=== PATIENT | female | born 1970 | race Caucasian/White ===

== ENCOUNTER → 2016-10-30 | Outpatient (CLI) | payer MEDICAID ==
[~2016-10-30] MED LIST: /ESOM40CA OR; FISH300C2 OR; GLUC1000 OR; SIMV20TA2 OR; SING10TA31 OR; [UNRECOGNIZED DRUG - OTHER] OR
== END ==
LOC: M WUC 14:53
PROVIDERS: ATTEND Nurse Practitioner Family
DX: E11.9 Type 2 diabetes mellitus without complications (principal); E55.9 Vitamin D deficiency, unspecified

== ENCOUNTER → 2016-11-22 | Outpatient (CLI) | payer MEDICAID | LOC: M CARPUL 13:20 | PROVIDERS: ATTEND Nurse Practitioner Family | DX: J44.9 Chronic obstructive pulmonary disease, unspecified (principal); R05 Cough ==

== ENCOUNTER → 2016-12-14 | Outpatient (CLI) | payer MEDICAID ==
--- NOTE | 2016-12-14 16:57 | REP ---
RIGHT SHOULDER SERIES: There is no evidence of an acute fracture, dislocation or intrinsic bone disease. The joint spaces appear unremarkable. IMPRESSION: No fracture or dislocation. Signed by Rene Mccormick MD 12/15/2016 01:23 P
[2016-12-14 18:31] LABS: MEAN CORPUSCULAR HGB CONC 35.1 g/dl (32.0-36.5); MEAN CORPUSCULAR VOLUME 88.1 fl (80.0-96.0); RED CELL DISTRIBUTION WIDTH 11.6 % (11.5-14.5); WHITE BLOOD COUNT 7.8 K/mm3 (4.0-10.0)
== END ==
LOC: M WUC 15:54
PROVIDERS: ATTEND Nurse Practitioner Family
DX: M25.511 Pain in right shoulder (principal); M54.6 Pain in thoracic spine

== ENCOUNTER → 2016-12-15 | Outpatient (CLI) | payer MEDICAID ==
--- NOTE | 2016-12-15 16:20 | REP ---
Clinical: Chest and back pain . Comparison: 08/10/2016 . Technique: PA and lateral. Findings: The mediastinum and cardiac silhouette are normal. The lung dunlap are clear and without acute consolidation, effusion, or pneumothorax. The skeletal structures are intact and normal. Impression: 1. No acute cardiopulmonary process. Signed by Naman Gray MD 12/15/2016 04:11 P
== END ==
LOC: M WUC 16:00
PROVIDERS: ATTEND Nurse Practitioner Family
DX: M54.6 Pain in thoracic spine (principal)

== ENCOUNTER → 2017-01-17 | Outpatient (CLI) | payer MEDICAID ==
[~2017-01-17] MED LIST changes: +BREO1INH INH; +DICL50TAB PO; +E-Z-PAQUE 96% w/w SUSP 176GM BTL As Ordered ONE; +JANU50TA8 PO; +NEUR100C PO; +TIZA4CAP3 PO; +VARIBAR NECTAR 40% w/v 240ML SUSP BTL As Ordered ONE; +VARIBAR PUDDING 40% w/v 230ML TUBE As Ordered ONE; +[UNRECOGNIZED DRUG - CODE] XX
--- NOTE | 2017-01-17 09:42 | REP ---
COOKIE SWALLOW: The procedure was performed under the direct supervision of Dr. Mccormick. The procedure was performed with Bekah Wright from speech pathology present. 5 mL aliquots of nectar, pudding, solid, and thin consistency barium was administered. There is no evidence of penetration or aspiration. A detailed report of this examination will be provided by speech pathology. 27 seconds of fluoroscopy time was utilized for this procedure. Reviewed by GADIEL Butler 01/17/2017 10:58 AEdited and Signed by Rene Mccormick MD 01/18/2017 04:59 P
== END ==
LOC: M ST 08:08
PROVIDERS: ATTEND Nurse Practitioner Family
DX: R13.10 Dysphagia, unspecified (principal)

== ENCOUNTER → 2017-04-30 | Outpatient (CLI) | payer MEDICAID ==
[~2017-04-30] MED LIST changes: -E-Z-PAQUE 96% w/w SUSP 176GM BTL As Ordered ONE; -VARIBAR NECTAR 40% w/v 240ML SUSP BTL As Ordered ONE; -VARIBAR PUDDING 40% w/v 230ML TUBE As Ordered ONE
[2017-04-30 09:40] LABS: ALKALINE PHOSPHATASE 70 U/L (45-117); BILIRUBIN,TOTAL 0.3 MG/DL (0.2-1.0); BLOOD UREA NITROGEN 15 MG/DL (7-18); CALCIUM LEVEL 8.1 MG/DL (8.5-10.1); CHLORIDE LEVEL 106 MEQ/L (98-107); CREATININE FOR GFR 0.72 MG/DL (0.55-1.02); GLUCOSE, FASTING 201 MG/DL (70-105); POTASSIUM SERUM 4.7 MEQ/L (3.5-5.1); SODIUM LEVEL 140 MEQ/L (136-145); TOTAL PROTEIN 6.7 GM/DL (6.4-8.2)
[2017-04-30 10:16] LABS: ALT/SGPT 21 U/L (12-78); AST/SGOT 10 U/L (15-37)
[2017-04-30 11:42] LABS: ALBUMIN 3.6 GM/DL (3.2-5.2); ALBUMIN/GLOBULIN RATIO 1.16 (1.00-1.93); ANION GAP 10 MEQ/L (8-16); CARBON DIOXIDE LEVEL 24 MEQ/L (21-32)
== END ==
LOC: M WUC 08:19
PROVIDERS: ATTEND Nurse Practitioner Family
DX: E11.9 Type 2 diabetes mellitus without complications (principal); E55.9 Vitamin D deficiency, unspecified

== ENCOUNTER → 2017-08-29 | Outpatient (CLI) | payer OTHER ==
[2017-08-29 09:44] LABS: ALKALINE PHOSPHATASE 69 U/L (45-117); ALT/SGPT 18 U/L (12-78); ANION GAP 7 MEQ/L (8-16); AST/SGOT 8 U/L (7-37); BILIRUBIN,TOTAL 0.4 MG/DL (0.2-1.0); BLOOD UREA NITROGEN 10 MG/DL (7-18); CALCIUM LEVEL 9.1 MG/DL (8.5-10.1); CARBON DIOXIDE LEVEL 27 MEQ/L (21-32); CHLORIDE LEVEL 108 MEQ/L (98-107); CHOLESTEROL LEVEL 185 MG/DL (<200); CREATININE FOR GFR 0.77 MG/DL (0.55-1.02); GLOMERULAR FILTRATION RATE > 60.0 (>58); GLUCOSE, FASTING 157 MG/DL (70-105); POTASSIUM SERUM 4.6 MEQ/L (3.5-5.1); SODIUM LEVEL 142 MEQ/L (136-145); TRIGLYCERIDES LEVEL 283 MG/DL (<150)
[2017-08-29 09:45] LABS: ALBUMIN 3.8 GM/DL (3.2-5.2); ALBUMIN/GLOBULIN RATIO 1.23 (1.00-1.93); TOTAL PROTEIN 6.9 GM/DL (6.4-8.2)
== END ==
LOC: M WUC 08:17
PROVIDERS: ATTEND Nurse Practitioner Adult Health
DX: E11.9 Type 2 diabetes mellitus without complications (principal)

== ENCOUNTER → 2018-10-10 | Outpatient (REF) | payer OTHER, MEDICAID ==
[~2018-10-10] MED LIST changes: +TIZA4CAP PO; -TIZA4CAP3 PO
[2018-10-10 18:07] LABS: BASO # 0.1 10^3/uL (0.0-0.2); BASO % 0.7 % (0.0-1.0); EOS # 0.1 10^3/uL (0.0-0.50); EOS % 1.6 % (0.0-3.0); HEMATOCRIT 40.1 % (36.0-47.0); HEMOGLOBIN 13.8 g/dl (12.0-15.5); LYMPH % 22.9 % (24.0-44.0); MEAN CORPUSCULAR HEMOGLOBIN 30.7 pg (27.0-33.0); MEAN CORPUSCULAR HGB CONC 34.4 g/dl (32.0-36.5); MEAN CORPUSCULAR VOLUME 89.1 fl (80.0-96.0); MONO # 0.4 10^3/uL (0.0-0.8); MONO % 4.6 % (0.0-5.0); NEUTROPHILS # 6.2 10^3/uL (1.8-7.7); PLATELET COUNT, AUTOMATED 267 10^3/uL (150-450); WHITE BLOOD COUNT 8.9 10^3/uL (4.0-10.0)
[2018-10-10 18:15] LABS: ALBUMIN 4.1 GM/DL (3.2-5.2); ALT/SGPT 28 U/L (12-78); BILIRUBIN,TOTAL 0.6 MG/DL (0.2-1.0); BLOOD UREA NITROGEN 10 MG/DL (7-18); CALCIUM LEVEL 9.2 MG/DL (8.5-10.1); CARBON DIOXIDE LEVEL 27 MEQ/L (21-32); CHLORIDE LEVEL 105 MEQ/L (98-107); CHOLESTEROL LEVEL 220 MG/DL (<200); CHOLESTEROL RISK RATIO 6.111 (<5); CREATININE FOR GFR 0.78 MG/DL (0.55-1.30); GLOMERULAR FILTRATION RATE > 60.0 (>58); GLUCOSE, FASTING 168 MG/DL (70-100); HDL CHOLESTEROL 36 MG/DL (>40); LDL CHOLESTEROL 125 MG/DL (<100); NON-HDL-C 184 MG/DL; POTASSIUM SERUM 4.3 MEQ/L (3.5-5.1); SODIUM LEVEL 138 MEQ/L (136-145); TOTAL PROTEIN 7.2 GM/DL (6.4-8.2); TRIGLYCERIDES LEVEL 296 MG/DL (<150)
[2018-10-10 18:16] LABS: TOTAL 25(OH) VITAMIN D 14.8 NG/ML (30.0-100.0)
== END ==
LOC: M LAB REF 16:54
PROVIDERS: ATTEND Nurse Practitioner Family
DX: Z13.9 Encounter for screening, unspecified (principal); E11.9 Type 2 diabetes mellitus without complications

== ENCOUNTER 2019-02-25 19:34 | Emergency (ER) | payer OTHER ==
[~2019-02-25] VITALS: Ht 167.6 cm; Wt 95.5 kg
[~2019-02-25 19:34] MED LIST changes: -CIPR-249 PO; -PYRI1TAB5 PO
[2019-02-25 20:50] LABS: BASO # 0.1 10^3/uL (0.0-0.2); BASO % 0.4 % (0.0-1.0); EOS # 0.1 10^3/uL (0.0-0.50); EOS % 0.9 % (0.0-3.0); HEMATOCRIT 37.4 % (36.0-47.0); HEMOGLOBIN 13.4 g/dl (12.0-15.5); LYMPH # 2.1 10^3/uL (1.5-4.5); LYMPH % 18.1 % (24.0-44.0); MEAN CORPUSCULAR HEMOGLOBIN 32.8 pg (27.0-33.0); MEAN CORPUSCULAR HGB CONC 35.8 g/dl (32.0-36.5); MEAN CORPUSCULAR VOLUME 91.4 fl (80.0-96.0); MONO # 0.5 10^3/uL (0.0-0.8); MONO % 4.8 % (0.0-5.0); NEUTROPHILS # 8.6 10^3/uL (1.8-7.7); NEUTROPHILS % 75.5 % (36.0-66.0); PLATELET COUNT, AUTOMATED 232 10^3/uL (150-450); RED BLOOD COUNT 4.09 10^6/uL (4.00-5.40); WHITE BLOOD COUNT 11.3 10^3/uL (4.0-10.0)
[2019-02-25 21:09] LABS: BLOOD UREA NITROGEN 12 MG/DL (7-18); CALCIUM LEVEL 8.7 MG/DL (8.5-10.1); CARBON DIOXIDE LEVEL 28 MEQ/L (21-32); CHLORIDE LEVEL 105 MEQ/L (98-107); CREATININE FOR GFR 1.03 MG/DL (0.55-1.30); GLOMERULAR FILTRATION RATE > 60.0 (>58); GLUCOSE, FASTING 238 MG/DL (70-100); POTASSIUM SERUM 4.2 MEQ/L (3.5-5.1); SODIUM LEVEL 139 MEQ/L (136-145)
[2019-02-25] MEDS ORDERED: PYRI1TAB5 PO (22:11)
[2019-02-25] MEDS ORDERED: CIPR-249 PO (22:11)
[2019-02-25] MEDS ORDERED: CIPROFLOXACIN 500 MG TAB PO ONE (22:15)
[2019-02-25] MEDS ORDERED: PHENAZOPYRIDINE 100 MG TAB PO ONE (22:15)
[2019-02-25 22:21] VITALS: BP 127/70
== END 2019-02-25 22:38 | disposition home or self-care (01) ==
LOC: M ED 19:34
DX: N39.0 Urinary tract infection, site not specified (principal); E11.9 Type 2 diabetes mellitus without complications; I10 Essential (primary) hypertension; F17.200 Nicotine dependence, unspecified, uncomplicated; Z88.0 Allergy status to penicillin; Z88.8 Allergy status to other drugs, medicaments and biological substances; Z79.899 Other long term (current) drug therapy; Z79.51 Long term (current) use of inhaled steroids

== ENCOUNTER → 2019-02-25 | Outpatient (REF) | payer OTHER ==
[~2019-02-25] MED LIST changes: -/ESOM40CA OR; +CIPR-249 PO; +NEXI1CAP3 OR; +PYRI1TAB5 PO
== END ==
LOC: M LAB REF 19:22
PROVIDERS: ATTEND Physician Assistant
DX: R10.84 Generalized abdominal pain (principal); R30.0 Dysuria

== ENCOUNTER → 2019-02-25 | Outpatient (CLI) | payer OTHER, MEDICAID ==
[2019-02-25 18:36] LABS: BASO # 0.1 10^3/uL (0.0-0.2); BASO % 0.4 % (0.0-1.0); EOS # 0.1 10^3/uL (0.0-0.50); EOS % 0.4 % (0.0-3.0); HEMATOCRIT 38.5 % (36.0-47.0); HEMOGLOBIN 13.3 g/dl (12.0-15.5); LYMPH # 1.5 10^3/uL (1.5-4.5); LYMPH % 12.3 % (24.0-44.0); MEAN CORPUSCULAR HEMOGLOBIN 30.9 pg (27.0-33.0); MEAN CORPUSCULAR HGB CONC 34.5 g/dl (32.0-36.5); MEAN CORPUSCULAR VOLUME 89.5 fl (80.0-96.0); MONO # 0.6 10^3/uL (0.0-0.8); MONO % 5.1 % (0.0-5.0); NEUTROPHILS # 9.8 10^3/uL (1.8-7.7); NEUTROPHILS % 81.4 % (36.0-66.0); PLATELET COUNT, AUTOMATED 260 10^3/uL (150-450)
[2019-02-25 18:50] LABS: ALBUMIN 3.9 GM/DL (3.2-5.2); ALT/SGPT 20 U/L (12-78); BILIRUBIN,TOTAL 0.5 MG/DL (0.2-1.0); BLOOD UREA NITROGEN 9 MG/DL (7-18); CALCIUM LEVEL 8.8 MG/DL (8.5-10.1); CARBON DIOXIDE LEVEL 26 MEQ/L (21-32); CHLORIDE LEVEL 105 MEQ/L (98-107); CREATININE FOR GFR 0.82 MG/DL (0.55-1.30); GLOMERULAR FILTRATION RATE > 60.0 (>58); GLUCOSE, FASTING 134 MG/DL (70-100); POTASSIUM SERUM 4.1 MEQ/L (3.5-5.1); SODIUM LEVEL 139 MEQ/L (136-145); TOTAL PROTEIN 7.3 GM/DL (6.4-8.2)
--- NOTE | 2019-02-25 20:36 | REP ---
ABDOMEN, FLAT AND UPRIGHT, PA CHEST, FIVE VIEWS: HISTORY: Abdominal pain. Air is present in small and large intestine. There are no air fluid levels or dilated loops of intestine. There is no pneumoperitoneum. Surgical clips are present in the right upper quadrant and pelvis. The lungs are clear. IMPRESSION: Nonspecific bowel gas pattern. Electronically Signed by Mg Serrano MD 02/26/2019 07:52 A
== END ==
LOC: M WUC 16:36
PROVIDERS: ATTEND Physician Assistant
DX: R10.84 Generalized abdominal pain (principal); R30.0 Dysuria

== ENCOUNTER → 2019-04-03 | Outpatient (REF) | payer OTHER, MEDICAID ==
[~2019-04-03] MED LIST changes: +CIPR-249 PO; +PYRI1TAB5 PO
[2019-04-03 13:46] LABS: ALBUMIN 4.1 GM/DL (3.2-5.2); ALT/SGPT 23 U/L (12-78); BILIRUBIN,TOTAL 0.4 MG/DL (0.2-1.0); BLOOD UREA NITROGEN 8 MG/DL (7-18); CALCIUM LEVEL 9.6 MG/DL (8.5-10.1); CARBON DIOXIDE LEVEL 29 MEQ/L (21-32); CHLORIDE LEVEL 106 MEQ/L (98-107); CHOLESTEROL LEVEL 205 MG/DL (<200); CREATININE FOR GFR 0.82 MG/DL (0.55-1.30); GLOMERULAR FILTRATION RATE > 60.0 (>58); GLUCOSE, FASTING 162 MG/DL (70-100); HDL CHOLESTEROL 37 MG/DL (>40); LDL CHOLESTEROL 118 MG/DL (<100); NON-HDL-C 168 MG/DL; POTASSIUM SERUM 4.2 MEQ/L (3.5-5.1); SODIUM LEVEL 139 MEQ/L (136-145); TOTAL 25(OH) VITAMIN D 40.5 NG/ML (30.0-100.0); TOTAL PROTEIN 7.5 GM/DL (6.4-8.2); TRIGLYCERIDES LEVEL 252 MG/DL (<150)
[2019-04-03 14:22] LABS: HEMOGLOBIN A1c 7.5 %
== END ==
LOC: M LAB REF 12:41
PROVIDERS: ATTEND Nurse Practitioner Adult Health
DX: Z13.9 Encounter for screening, unspecified (principal)

== ENCOUNTER → 2019-07-10 | Outpatient (REF) | payer OTHER, MEDICAID ==
[2019-07-10 14:14] LABS: INR 0.97; PROTHROMBIN TIME 12.6 SECONDS (11.8-14.0)
[2019-07-10 17:40] LABS: BASO # 0.1 10^3/uL (0.0-0.2); BASO % 0.7 % (0.0-1.0); EOS # 0.2 10^3/uL (0.0-0.5); EOS % 1.7 % (0.0-3.0); HEMATOCRIT 41.2 % (36.0-47.0); HEMOGLOBIN 14.3 g/dl (12.0-15.5); LYMPH # 2.5 10^3/uL (1.5-5.0); LYMPH % 26.6 % (24.0-44.0); MEAN CORPUSCULAR HEMOGLOBIN 31.4 pg (27.0-33.0); MEAN CORPUSCULAR HGB CONC 34.7 g/dl (32.0-36.5); MEAN CORPUSCULAR VOLUME 90.5 fl (80.0-96.0); MONO # 0.5 10^3/uL (0.0-0.8); NEUTROPHILS # 6.3 10^3/uL (1.5-8.5); NEUTROPHILS % 65.7 % (36.0-66.0); PLATELET COUNT, AUTOMATED 268 10^3/uL (150-450); RED BLOOD COUNT 4.55 10^6/uL (4.00-5.40); WHITE BLOOD COUNT 9.5 10^3/uL (4.0-10.0)
[2019-07-10 17:54] LABS: ALBUMIN 4.1 GM/DL (3.2-5.2); ALT/SGPT 26 U/L (12-78); BILIRUBIN,TOTAL 0.5 MG/DL (0.2-1.0); BLOOD UREA NITROGEN 9 MG/DL (7-18); CALCIUM LEVEL 9.6 MG/DL (8.5-10.1); CARBON DIOXIDE LEVEL 27 MEQ/L (21-32); CHLORIDE LEVEL 105 MEQ/L (98-107); CREATININE FOR GFR 0.84 MG/DL (0.55-1.30); GLOMERULAR FILTRATION RATE > 60.0 (>58); GLUCOSE, FASTING 158 MG/DL (70-100); POTASSIUM SERUM 4.2 MEQ/L (3.5-5.1); SODIUM LEVEL 138 MEQ/L (136-145); TOTAL PROTEIN 7.2 GM/DL (6.4-8.2)
[2019-07-10 18:21] LABS: HEMOGLOBIN A1c 7.9 %
== END ==
LOC: M LAB REF 12:15
PROVIDERS: ATTEND Nurse Practitioner Adult Health
DX: Z13.9 Encounter for screening, unspecified (principal)

== ENCOUNTER → 2019-10-16 | Outpatient (CLI) | payer OTHER, MEDICAID ==
[2019-10-16 20:17] LABS: HEMOGLOBIN A1c 8.1 %
[2019-10-16 20:35] LABS: ALBUMIN 3.9 GM/DL (3.2-5.2); ALT/SGPT 25 U/L (12-78); BILIRUBIN,TOTAL 0.3 MG/DL (0.2-1.0); BLOOD UREA NITROGEN 10 MG/DL (7-18); CALCIUM LEVEL 9.1 MG/DL (8.5-10.1); CARBON DIOXIDE LEVEL 30 MEQ/L (21-32); CHLORIDE LEVEL 106 MEQ/L (98-107); CREATININE FOR GFR 0.85 MG/DL (0.55-1.30); GLOMERULAR FILTRATION RATE > 60.0 (>58); GLUCOSE, FASTING 122 MG/DL (70-100); SODIUM LEVEL 141 MEQ/L (136-145); TOTAL PROTEIN 6.9 GM/DL (6.4-8.2)
== END ==
LOC: M WUC 16:59
PROVIDERS: ATTEND Nurse Practitioner Adult Health
DX: E11.9 Type 2 diabetes mellitus without complications (principal)

== ENCOUNTER → 2020-01-21 | Outpatient (REF) | payer OTHER, MEDICAID ==
[2020-01-21 18:51] LABS: HEMOGLOBIN A1c 8.5 %
== END ==
LOC: M LAB REF 18:07
PROVIDERS: ATTEND Nurse Practitioner Adult Health
DX: Z13.9 Encounter for screening, unspecified (principal)

== ENCOUNTER → 2020-03-24 | Outpatient (REF) | payer OTHER, MEDICAID ==
[2020-03-24 17:16] LABS: HEMOGLOBIN A1c 8.4 %
== END ==
LOC: M LAB REF 16:07
PROVIDERS: ATTEND Nurse Practitioner Adult Health
DX: E11.9 Type 2 diabetes mellitus without complications (principal)

== ENCOUNTER → 2020-06-06 | Outpatient (REF) | payer OTHER, MEDICAID | LOC: M LAB REF 18:22 | PROVIDERS: ATTEND Physician Assistant | DX: L02.212 Cutaneous abscess of back [any part, except buttock and flank] (principal) ==

== ENCOUNTER → 2020-12-01 | Outpatient (REF) | payer OTHER, MEDICAID ==
[2020-12-01 14:05] LABS: BASO # 0.1 10^3/uL (0.0-0.2); BASO % 0.6 % (0.0-1.0); EOS # 0.2 10^3/uL (0.0-0.5); EOS % 1.8 % (0.0-3.0); HEMATOCRIT 44.9 % (36.0-47.0); HEMOGLOBIN 15.1 g/dl (12.0-15.5); LYMPH # 2.3 10^3/uL (1.5-5.0); LYMPH % 26.9 % (24.0-44.0); MEAN CORPUSCULAR HEMOGLOBIN 30.8 pg (27.0-33.0); MEAN CORPUSCULAR HGB CONC 33.6 g/dl (32.0-36.5); MEAN CORPUSCULAR VOLUME 91.4 fl (80.0-96.0); MONO # 0.4 10^3/uL (0.0-0.8); MONO % 5.1 % (2.0-8.0); NEUTROPHILS # 5.7 10^3/uL (1.5-8.5); NEUTROPHILS % 65.4 % (36.0-66.0); PLATELET COUNT, AUTOMATED 277 10^3/uL (150-450); RED BLOOD COUNT 4.91 10^6/uL (4.00-5.40); WHITE BLOOD COUNT 8.7 10^3/uL (4.0-10.0)
[2020-12-01 14:23] LABS: ALBUMIN 4.3 GM/DL (3.2-5.2); ALT/SGPT 23 U/L (12-78); BILIRUBIN,TOTAL 0.3 MG/DL (0.2-1.0); BLOOD UREA NITROGEN 12 MG/DL (7-18); CALCIUM LEVEL 9.3 MG/DL (8.5-10.1); CARBON DIOXIDE LEVEL 27 MEQ/L (21-32); CHLORIDE LEVEL 107 MEQ/L (98-107); CHOLESTEROL LEVEL 248 MG/DL (<200); CHOLESTEROL RISK RATIO 6.888 (<5); CREATININE FOR GFR 0.84 MG/DL (0.55-1.30); FREE T4 1.15 NG/DL (0.76-1.46); GLOMERULAR FILTRATION RATE > 60.0 (>58); GLUCOSE, FASTING 106 MG/DL (70-100); HDL CHOLESTEROL 36 MG/DL (>40); LDL CHOLESTEROL 155 MG/DL (<100); NON-HDL-C 212 MG/DL; POTASSIUM SERUM 4.7 MEQ/L (3.5-5.1); SODIUM LEVEL 140 MEQ/L (136-145); TOTAL 25(OH) VITAMIN D 21.3 NG/ML (30.0-100.0); TOTAL PROTEIN 7.4 GM/DL (6.4-8.2); TRIGLYCERIDES LEVEL 285 MG/DL (<150)
== END ==
LOC: M LAB REF 12:39
PROVIDERS: ATTEND Nurse Practitioner Family
DX: E78.5 Hyperlipidemia, unspecified (principal); E66.9 Obesity, unspecified; G89.4 Chronic pain syndrome

== ENCOUNTER → 2020-12-23 | Outpatient (REF) | payer OTHER, MEDICAID | LOC: M SFHCWAGY 13:20 | PROVIDERS: ATTEND Nurse Practitioner Women's Health | DX: Z12.72 Encounter for screening for malignant neoplasm of vagina (principal); Z01.419 Encounter for gynecological examination (general) (routine) without abnormal findings ==

== ENCOUNTER → 2020-12-31 | Outpatient (CLI) | payer OTHER ==
--- NOTE | 2020-12-31 11:08 | REPMRS ---
Patient History The patient states she had a clinical breast exam in 12/12 Patient has history of cervical cancer at age 21. Family history of ovarian cancer under age 50 in maternal aunt, unknown cancer under age 50 in maternal grandfather. Benign stereotactic FNA biopsy of the right breast. Benign stereotactic core biopsy of the right breast. 3D TOMOSYNTHESIS WAS PERFORMED. The [facility] lifetime risk for breast cancer is 9.2%. Volpara breast density a. Digital Woman Screen Mammo: December 31, 2020 - Exam #: [id number] Bilateral CC and MLO view(s) were taken. Technologist: Judy Morris, Technologist Prior study comparison: November 21, 2018, bilateral digital mammo screening bilat, performed at [facility] [place]. April 30, 2015, digital mammo screening bilat, performed at [facility] [place]. FINDINGS: There are scattered fibroglandular densities. There has been no change in the appearance of the mammogram from the prior studies. There is a mild amount of residual fibroglandular tissue which is fairly symmetric. There is no interval development of dominant mass, architectural distortion, or clustered microcalcification suggestive of malignancy. Assessment: BI-RADS/ACR category 1 mammogram. Negative Mammogram. Recommendation Routine screening mammogram in 1 year (for women over age 40). This mammogram was interpreted with the aid of an FDA-approved computer-aided dectection system. Electronically Signed By: Rene Mccormick MD 12/31/20 [id number]
== END ==
LOC: M WHC 09:30
PROVIDERS: ATTEND Nurse Practitioner Women's Health
DX: Z12.31 Encounter for screening mammogram for malignant neoplasm of breast (principal); Z98.890 Other specified postprocedural states

== ENCOUNTER → 2021-03-25 | Outpatient (REF) | payer OTHER ==
[2021-03-25 17:33] LABS: BASO % 0.4 % (0.0-1.0); EOS # 0.2 10^3/uL (0.0-0.5); EOS % 2.6 % (0.0-3.0); HEMATOCRIT 44.7 % (36.0-47.0); HEMOGLOBIN 14.7 g/dl (12.0-15.5); LYMPH % 21.8 % (24.0-44.0); MEAN CORPUSCULAR HEMOGLOBIN 30.4 pg (27.0-33.0); MEAN CORPUSCULAR HGB CONC 32.9 g/dl (32.0-36.5); MEAN CORPUSCULAR VOLUME 92.5 fl (80.0-96.0); MONO # 0.5 10^3/uL (0.0-0.8); MONO % 5.7 % (2.0-8.0); NEUTROPHILS # 6.2 10^3/uL (1.5-8.5); NEUTROPHILS % 69.3 % (36.0-66.0); PLATELET COUNT, AUTOMATED 277 10^3/uL (150-450); RED BLOOD COUNT 4.83 10^6/uL (4.00-5.40)
[2021-03-25 17:39] LABS: AMORPHOUS SEDIMENT SMALL (NEGATIVE); APPEARANCE, URINE HAZY (CLEAR); BACTERIA, URINE AUTO 1+ (NEGATIVE); BILIRUBIN, URINE AUTO NEGATIVE (NEGATIVE); BLOOD, URINE BLOOD NEGATIVE (NEGATIVE); COLOR, URINE YELLOW (YELLOW); GLUCOSE, URINE (UA) AUTO 1+ mg/dL (NEGATIVE); KETONE, URINE AUTO NEGATIVE (NEGATIVE); LEUKOCYTE ESTERASE, URINE AUTO NEGATIVE (NEGATIVE); MUCUS, URINE SMALL (NEGATIVE); NITRITE, URINE AUTO POSITIVE (NEGATIVE); PROTEIN, URINE AUTO NEGATIVE (NEGATIVE); RBC, URINE AUTO 3 /HPF (0-3); SPECIFIC GRAVITY URINE AUTO 1.018 (1.002-1.035); SQUAMOUS EPITHELIAL CELL UR AU 3 /HPF (0-6); UROBILINOGEN, URINE AUTO 0.2 mg/dL (0.0-2.0); WBC, URINE AUTO 3 /HPF (0-3)
[2021-03-25 17:40] LABS: ALBUMIN 3.8 GM/DL (3.2-5.2); ALT/SGPT 20 U/L (12-78); BILIRUBIN,TOTAL 0.4 MG/DL (0.2-1.0); BLOOD UREA NITROGEN 11 MG/DL (7-18); CALCIUM LEVEL 8.6 MG/DL (8.5-10.1); CARBON DIOXIDE LEVEL 27 MEQ/L (21-32); CHLORIDE LEVEL 107 MEQ/L (98-107); CHOLESTEROL LEVEL 233 MG/DL (<200); CHOLESTEROL RISK RATIO 7.281 (<5); CREATININE FOR GFR 0.76 MG/DL (0.55-1.30); FREE T4 1.06 NG/DL (0.76-1.46); GLOMERULAR FILTRATION RATE > 60.0 (>58); GLUCOSE, FASTING 168 MG/DL (70-100); HDL CHOLESTEROL 32 MG/DL (>40); LDL CHOLESTEROL 138 MG/DL (<100); NON-HDL-C 201 MG/DL; POTASSIUM SERUM 5.1 MEQ/L (3.5-5.1); SODIUM LEVEL 138 MEQ/L (136-145); TOTAL PROTEIN 6.7 GM/DL (6.4-8.2); TRIGLYCERIDES LEVEL 315 MG/DL (<150)
[2021-03-25 17:42] LABS: TOTAL 25(OH) VITAMIN D 15.3 NG/ML (30.0-100.0)
== END ==
LOC: M LAB REF 16:21
PROVIDERS: ATTEND Nurse Practitioner Family
DX: E11.65 Type 2 diabetes mellitus with hyperglycemia (principal); E66.9 Obesity, unspecified; I10 Essential (primary) hypertension; E78.5 Hyperlipidemia, unspecified

== ENCOUNTER 2021-08-01 11:04 | Outpatient (CLI) | payer OTHER ==
[~2021-08-01] VITALS: Ht 167.6 cm; Wt 88.0 kg
[~2021-08-01 11:04] MED LIST changes: +ALBUTEROL 90 MCG/ACT 8GM HFA INHALER INH PRN; +ALBUTEROL SULFATE 2.5 MG/0.5 ML INH NEB SOLN INH PRN; +EPINEPHrine INJ 1 MG/ML 1ML AMP IM PRN; +NS 1,000 ML IV SCH; +diphenhydrAMINE 50MG/ML VIAL (J1200) IV PRN; +methylPREDNISolone 125MG 2ML VIAL IV PRN
[2021-08-01] MEDS ORDERED: CASIRIVIMAB (REGN10933) 600 MG, IMDEVIMAB (REGN10987) 600 MG in NS 250 ML IV ONE (12:00)
[2021-08-01 12:14] VITALS: BP 109/71
[2021-08-01 12:44] VITALS: BP 101/65
[2021-08-01 13:14] VITALS: BP 108/64
[2021-08-01 14:14] VITALS: BP 113/74
== END 2021-08-01 14:14 | disposition home or self-care (01) ==
LOC: M OPCLI4PR 11:04
PROVIDERS: ATTEND Family Medicine Addiction Medicine
DX: U07.1 COVID-19 (principal); Z88.0 Allergy status to penicillin

== ENCOUNTER → 2022-01-26 | Outpatient (REF) | payer OTHER ==
[~2022-01-26] MED LIST changes: -ALBUTEROL 90 MCG/ACT 8GM HFA INHALER INH PRN; -ALBUTEROL SULFATE 2.5 MG/0.5 ML INH NEB SOLN INH PRN; -EPINEPHrine INJ 1 MG/ML 1ML AMP IM PRN; -NS 1,000 ML IV SCH; -diphenhydrAMINE 50MG/ML VIAL (J1200) IV PRN; -methylPREDNISolone 125MG 2ML VIAL IV PRN
[2022-01-26 13:57] LABS: APPEARANCE, URINE CLEAR (CLEAR); BACTERIA, URINE AUTO NEGATIVE (NEGATIVE); BILIRUBIN, URINE AUTO NEGATIVE (NEGATIVE); BLOOD, URINE BLOOD NEGATIVE (NEGATIVE); COLOR, URINE YELLOW (YELLOW); GLUCOSE, URINE (UA) AUTO NEGATIVE (NEGATIVE); KETONE, URINE AUTO NEGATIVE (NEGATIVE); LEUKOCYTE ESTERASE, URINE AUTO NEGATIVE (NEGATIVE); NITRITE, URINE AUTO NEGATIVE (NEGATIVE); PROTEIN, URINE AUTO NEGATIVE (NEGATIVE); RBC, URINE AUTO 0 /HPF (0-3); SPECIFIC GRAVITY URINE AUTO 1.012 (1.002-1.035); SQUAMOUS EPITHELIAL CELL UR AU 1 /HPF (0-6); UROBILINOGEN, URINE AUTO 0.2 mg/dL (0.0-2.0); WBC, URINE AUTO 1 /HPF (0-3)
== END ==
LOC: M SMT 13:06
PROVIDERS: ATTEND Nurse Practitioner Women's Health
DX: R30.0 Dysuria (principal)

== ENCOUNTER → 2022-04-11 | Outpatient (CLI) | payer OTHER | LOC: M RAD 11:09 | PROVIDERS: ATTEND Nurse Practitioner Family | DX: R94.39 Abnormal result of other cardiovascular function study (principal) ==

== ENCOUNTER → 2022-08-04 | Outpatient (REF) | payer OTHER ==
[2022-08-04 13:59] LABS: CHOLESTEROL RISK RATIO 3.54 (<5)
[2022-08-04 14:22] LABS: HEMOGLOBIN A1c 6.2 %
== END ==
LOC: M LAB REF 12:16
PROVIDERS: ATTEND Nurse Practitioner Family
DX: E66.3 Overweight (principal)

== ENCOUNTER → 2022-08-16 | Outpatient (REF) | payer OTHER ==
[2022-08-16 17:44] LABS: CREATININE, URINE 94.8 MG/DL; MALB URINE SIEMENS < 5.0 MG/DL; MAU/CREAT RATIO 5.2 MCG/MG (0.0-30.0)
== END ==
LOC: M LAB REF 12:49
PROVIDERS: ATTEND Nurse Practitioner Family
DX: E11.9 Type 2 diabetes mellitus without complications (principal)

== ENCOUNTER → 2022-10-09 | Outpatient (CLI) | payer OTHER | LOC: M WHC 08:10 | PROVIDERS: ATTEND Nurse Practitioner Family | DX: Z12.31 Encounter for screening mammogram for malignant neoplasm of breast (principal) ==

== ENCOUNTER → 2022-11-13 | Outpatient (REF) | payer OTHER | LOC: M LAB REF 12:07 | PROVIDERS: ATTEND Nurse Practitioner Family | DX: E11.9 Type 2 diabetes mellitus without complications (principal) ==

== ENCOUNTER → 2023-03-02 | Outpatient (REF) | payer OTHER ==
[2023-03-02 14:56] LABS: BASO # 0.1 10^3/uL (0.0-0.2); BASO % 0.8 % (0.0-1.0); EOS # 0.1 10^3/uL (0.0-0.5); EOS % 1.2 % (0.0-3.0); HEMOGLOBIN 15.2 g/dl (12.0-15.5); LYMPH # 2.7 10^3/uL (1.5-5.0); LYMPH % 31.4 % (24.0-44.0); MEAN CORPUSCULAR HEMOGLOBIN 30.8 pg (27.0-33.0); MEAN CORPUSCULAR HGB CONC 33.8 g/dl (32.0-36.5); MEAN CORPUSCULAR VOLUME 91.3 fl (80.0-96.0); MONO # 0.5 10^3/uL (0.0-0.8); MONO % 6.1 % (2.0-8.0); NEUTROPHILS # 5.1 10^3/uL (1.5-8.5); NEUTROPHILS % 60.4 % (36.0-66.0); PLATELET COUNT, AUTOMATED 242 10^3/uL (150-450); RED BLOOD COUNT 4.93 10^6/uL (4.00-5.40); WHITE BLOOD COUNT 8.5 10^3/uL (4.0-10.0)
[2023-03-02 15:03] LABS: ALBUMIN 4.3 G/DL (3.2-5.2); ALKALINE PHOSPHATASE 89 U/L (46-116); ALT/SGPT 16 U/L (7.0-40); AST/SGOT 10 U/L (<34); BILIRUBIN,TOTAL 0.7 MG/DL (0.3-1.2); BLOOD UREA NITROGEN 13 MG/DL (9-23); CALCIUM LEVEL 9.2 MG/DL (8.5-10.1); CARBON DIOXIDE LEVEL 27 MMOL/L (20-31); CHLORIDE LEVEL 105 MMOL/L (98-107); CHOLESTEROL LEVEL 191 MG/DL (<200); CHOLESTEROL RISK RATIO 4.34 (<5); CREATININE FOR GFR 0.84 MG/DL (0.55-1.30); GLOMERULAR FILTRATION RATE > 60.0 (>51); GLUCOSE, FASTING 92 MG/DL (60-100); LDL CHOLESTEROL 121.8 MG/DL (<100); POTASSIUM SERUM 4.4 MMOL/L (3.5-5.1); SODIUM LEVEL 140 MMOL/L (136-145); TOTAL PROTEIN 6.9 G/DL (5.7-8.2); TRIGLYCERIDES LEVEL 126 MG/DL (<150)
[2023-03-02 15:04] LABS: THYROID STIMULATING HORMONE 2.443 uIU/ML (0.55-4.78)
[2023-03-02 15:05] LABS: TOTAL 25(OH) VITAMIN D 14.7 NG/ML (20.0-100.0)
[2023-03-02 15:53] LABS: HEMOGLOBIN A1c 6.1 % (4.0-6.0)
== END ==
LOC: M LAB REF 12:27
PROVIDERS: ATTEND Nurse Practitioner Family
DX: E11.9 Type 2 diabetes mellitus without complications (principal); Z13.228 Encounter for screening for other metabolic disorders; E78.5 Hyperlipidemia, unspecified; E66.9 Obesity, unspecified; G89.4 Chronic pain syndrome

== ENCOUNTER → 2023-04-02 | Outpatient (REF) | payer OTHER | LOC: M SFHCWAGY 18:12 | PROVIDERS: ATTEND Nurse Practitioner Family | DX: Z12.4 Encounter for screening for malignant neoplasm of cervix (principal) ==

== ENCOUNTER → 2023-07-17 | Outpatient (REF) | payer OTHER ==
[2023-07-17 13:53] LABS: CHOLESTEROL RISK RATIO 4.52 (<5); HDL CHOLESTEROL 49.3 MG/DL (>40); LDL CHOLESTEROL 154.3 MG/DL (<100); NON-HDL-C 173.7 MG/DL
[2023-07-17 13:59] LABS: HEMOGLOBIN A1c 6.1 % (4.0-6.0)
== END ==
LOC: M LAB REF 12:13
PROVIDERS: ATTEND Nurse Practitioner Family
DX: E11.9 Type 2 diabetes mellitus without complications (principal); E78.5 Hyperlipidemia, unspecified

== ENCOUNTER 2023-08-07 05:30 | Emergency (ER) | payer OTHER ==
[~2023-08-07] VITALS: Ht 167.6 cm; Wt 85.0 kg
[2023-08-07] MEDS ORDERED: MORPHINE 4 MG/ML 1ML VIAL IV ONE (06:30)
[2023-08-07 06:35] LABS: BASO # 0.1 10^3/uL (0.0-0.2); BASO % 0.5 % (0.0-1.0); EOS # 0.2 10^3/uL (0.0-0.5); EOS % 2.4 % (0.0-3.0); HEMOGLOBIN 14.7 g/dl (12.0-15.5); LYMPH # 1.4 10^3/uL (1.5-5.0); LYMPH % 15.2 % (24.0-44.0); MEAN CORPUSCULAR HEMOGLOBIN 31.9 pg (27.0-33.0); MEAN CORPUSCULAR VOLUME 91.1 fl (80.0-96.0); MONO # 0.5 10^3/uL (0.0-0.8); MONO % 5.6 % (2.0-8.0); NEUTROPHILS # 7.2 10^3/uL (1.5-8.5); NEUTROPHILS % 76.1 % (36.0-66.0); PLATELET COUNT, AUTOMATED 158 10^3/uL (150-450); RED BLOOD COUNT 4.61 10^6/uL (4.00-5.40); WHITE BLOOD COUNT 9.5 10^3/uL (4.0-10.0)
[2023-08-07] MEDS ORDERED: MORPHINE 2 MG/ML 1ML VIAL IV ONE (06:50)
[2023-08-07] MEDS ORDERED: ACETAMINOPHEN *IV* 1,000 MG in IV 1 EA IV ONE (06:50)
[2023-08-07] MEDS ORDERED: BENZONATATE 100MG CAPSULE PO ONE (06:50)
[2023-08-07 06:58] LABS: INR 0.98; PROTHROMBIN TIME 12.7 SECONDS (12.5-14.5)
[2023-08-07 06:59] LABS: PARTIAL THROMBOPLASTIN TIME 25.7 SECONDS (24.8-34.2)
[2023-08-07] MEDS ORDERED: ONDANSETRON 4MG 2ML VIAL IV ONE (07:00)
[2023-08-07 07:15] LABS: RSV AMPLIFICATION NEGATIVE (NEGATIVE)
[2023-08-07 07:20] LABS: BLOOD UREA NITROGEN 16 MG/DL (9-23); CALCIUM LEVEL 8.9 MG/DL (8.5-10.1); CARBON DIOXIDE LEVEL 25 MMOL/L (20-31); CHLORIDE LEVEL 110 MMOL/L (98-107); CREATININE FOR GFR 0.72 MG/DL (0.55-1.30); GLOMERULAR FILTRATION RATE > 60.0 (>51); GLUCOSE, FASTING 229 MG/DL (60-100); POTASSIUM SERUM 4.6 MMOL/L (3.5-5.1); SODIUM LEVEL 143 MMOL/L (136-145)
[2023-08-07 08:17] VITALS: BP 154/98; TEMP 98.7; O2SAT 95
== END 2023-08-07 08:19 | disposition short-term general hospital (02) ==
LOC: M ED 05:30
DX: I60.9 Nontraumatic subarachnoid hemorrhage, unspecified (principal); E11.9 Type 2 diabetes mellitus without complications; F17.200 Nicotine dependence, unspecified, uncomplicated; J45.909 Unspecified asthma, uncomplicated; Z88.0 Allergy status to penicillin; Z88.8 Allergy status to other drugs, medicaments and biological substances; Z79.2 Long term (current) use of antibiotics; Z79.891 Long term (current) use of opiate analgesic; Z79.899 Other long term (current) drug therapy
CPT/HCPCS: 70450; 80048; 85025; 85610; 85730; 87631; 93005; 93041; 96374; 96375; 99285; J0131; J2405

== ENCOUNTER → 2023-08-29 | Outpatient (REF) | payer OTHER | LOC: M LAB REF 09:59 | PROVIDERS: ATTEND Nurse Practitioner Family | DX: R39.9 Unspecified symptoms and signs involving the genitourinary system (principal) ==

== ENCOUNTER → 2023-10-30 | Outpatient (REF) | payer OTHER ==
[2023-10-30 19:48] LABS: BLOOD UREA NITROGEN 10 MG/DL (9-23); CREATININE FOR GFR 0.77 MG/DL (0.55-1.30); GLOMERULAR FILTRATION RATE > 60.0 (>51)
== END ==
LOC: M LABWUC 17:47
PROVIDERS: ATTEND Neurological Surgery
DX: Z01.818 Encounter for other preprocedural examination (principal); I60.8 Other nontraumatic subarachnoid hemorrhage; E11.9 Type 2 diabetes mellitus without complications

== ENCOUNTER → 2024-01-17 | Outpatient (REF) | payer OTHER ==
[2024-01-17 14:23] LABS: ALBUMIN 3.9 G/DL (3.2-5.2); ALKALINE PHOSPHATASE 109 U/L (46-116); ALT/SGPT 35 U/L (7.0-40); AST/SGOT 16 U/L (<34); BILIRUBIN,TOTAL 0.5 MG/DL (0.3-1.2); BLOOD UREA NITROGEN 12 MG/DL (9-23); CALCIUM LEVEL 9.6 MG/DL (8.5-10.1); CARBON DIOXIDE LEVEL 26 MMOL/L (20-31); CHLORIDE LEVEL 103 MMOL/L (98-107); CHOLESTEROL LEVEL 256 MG/DL (<200); CHOLESTEROL RISK RATIO 5.88 (<5); CREATININE FOR GFR 0.84 MG/DL (0.55-1.30); GLOMERULAR FILTRATION RATE > 60.0 (>51); GLUCOSE, FASTING 256 MG/DL (60-100); HDL CHOLESTEROL 43.5 MG/DL (>40); LDL CHOLESTEROL 149.3 MG/DL (<100); NON-HDL-C 212.5 MG/DL; POTASSIUM SERUM 4.4 MMOL/L (3.5-5.1); SODIUM LEVEL 138 MMOL/L (136-145); TOTAL PROTEIN 6.9 G/DL (5.7-8.2); TRIGLYCERIDES LEVEL 316 MG/DL (<150)
[2024-01-17 14:28] LABS: HEMOGLOBIN A1c 8.2 % (4.0-6.0)
== END ==
LOC: M LAB REF 11:53
PROVIDERS: ATTEND Nurse Practitioner Family
DX: E11.9 Type 2 diabetes mellitus without complications (principal); E66.9 Obesity, unspecified; E78.5 Hyperlipidemia, unspecified; G89.4 Chronic pain syndrome

== ENCOUNTER → 2024-07-22 | Outpatient (REF) | payer OTHER ==
[2024-07-22 16:14] LABS: ALKALINE PHOSPHATASE 111 U/L (35-104); ALT/SGPT 62 U/L (7.0-40); AST/SGOT 25 U/L (<34); BILIRUBIN,TOTAL 0.6 MG/DL (0.3-1.2); BLOOD UREA NITROGEN 15 MG/DL (9-23); CALCIUM LEVEL 9.9 MG/DL (8.5-10.1); CARBON DIOXIDE LEVEL 28 MMOL/L (20-31); CHLORIDE LEVEL 105 MMOL/L (98-107); CHOLESTEROL LEVEL 232 MG/DL (<200); CHOLESTEROL RISK RATIO 5.51 (<5); CREATININE FOR GFR 0.72 MG/DL (0.55-1.30); GLOMERULAR FILTRATION RATE > 60.0 (>51); GLUCOSE, FASTING 200 MG/DL (60-100); HDL CHOLESTEROL 42.1 MG/DL (>40); NON-HDL-C 189.9 MG/DL; POTASSIUM SERUM 4.3 MMOL/L (3.5-5.1); SODIUM LEVEL 139 MMOL/L (136-145); TOTAL PROTEIN 7.2 G/DL (5.7-8.2); TRIGLYCERIDES LEVEL 463 MG/DL (<150)
[2024-07-22 17:03] LABS: HEMOGLOBIN A1c 9.2 % (4.0-6.0)
== END ==
LOC: M LAB REF 14:05
PROVIDERS: ATTEND Nurse Practitioner Family
DX: E11.65 Type 2 diabetes mellitus with hyperglycemia (principal); E78.5 Hyperlipidemia, unspecified; E66.9 Obesity, unspecified; G89.4 Chronic pain syndrome

== ENCOUNTER → 2024-08-04 | Outpatient (REF) | payer OTHER ==
[2024-08-04 17:56] LABS: CREATININE, URINE 86.2 MG/DL; MAU/CREAT RATIO 19.7 MCG/MG (0.0-30.0)
== END ==
LOC: M LAB REF 16:21
PROVIDERS: ATTEND Nurse Practitioner Family
DX: E11.9 Type 2 diabetes mellitus without complications (principal)

== ENCOUNTER → 2024-11-04 | Outpatient (REF) | payer OTHER ==
[2024-11-04 13:17] LABS: ALBUMIN 3.5 G/DL (3.2-5.2); ALKALINE PHOSPHATASE 96 U/L (35-104); ALT/SGPT 57 U/L (7.0-40); AST/SGOT 27 U/L (<34); BILIRUBIN,TOTAL 0.4 MG/DL (0.3-1.2); BLOOD UREA NITROGEN 12 MG/DL (9-23); CALCIUM LEVEL 8.8 MG/DL (8.5-10.1); CARBON DIOXIDE LEVEL 27 MMOL/L (20-31); CHLORIDE LEVEL 106 MMOL/L (98-107); CHOLESTEROL LEVEL 188 MG/DL (<200); CHOLESTEROL RISK RATIO 5.59 (<5); CREATININE FOR GFR 0.61 MG/DL (0.55-1.30); GLOMERULAR FILTRATION RATE > 60.0 (>51); GLUCOSE, FASTING 276 MG/DL (60-100); HDL CHOLESTEROL 33.6 MG/DL (>40); LDL CHOLESTEROL 77.4 MG/DL (<100); NON-HDL-C 154.4 MG/DL; POTASSIUM SERUM 4.2 MMOL/L (3.5-5.1); SODIUM LEVEL 139 MMOL/L (136-145); TOTAL PROTEIN 6.9 G/DL (5.7-8.2); TRIGLYCERIDES LEVEL 385 MG/DL (<150)
[2024-11-04 13:43] LABS: HEMOGLOBIN A1c 8.8 % (4.0-6.0)
== END ==
LOC: M LAB REF 12:10
PROVIDERS: ATTEND Nurse Practitioner Family
DX: E11.9 Type 2 diabetes mellitus without complications (principal); E78.5 Hyperlipidemia, unspecified; E66.9 Obesity, unspecified; G89.4 Chronic pain syndrome

== ENCOUNTER → 2025-01-22 | Outpatient (REF) | payer OTHER ==
[2025-01-22 14:07] LABS: ALKALINE PHOSPHATASE 101 U/L (35-104); ALT/SGPT 47 U/L (7.0-40); AST/SGOT 28 U/L (<34); BILIRUBIN,TOTAL 0.7 MG/DL (0.3-1.2); BLOOD UREA NITROGEN 10 MG/DL (9-23); CALCIUM LEVEL 9.5 MG/DL (8.5-10.1); CARBON DIOXIDE LEVEL 27 MMOL/L (20-31); CHLORIDE LEVEL 103 MMOL/L (98-107); CHOLESTEROL LEVEL 158 MG/DL (<200); CHOLESTEROL RISK RATIO 4.46 (<5); CREATININE FOR GFR 0.72 MG/DL (0.55-1.30); GLOMERULAR FILTRATION RATE > 90.0 (>51); GLUCOSE, FASTING 154 MG/DL (60-100); HDL CHOLESTEROL 35.4 MG/DL (>40); LDL CHOLESTEROL 86.2 MG/DL (<100); NON-HDL-C 122.6 MG/DL; POTASSIUM SERUM 4.1 MMOL/L (3.5-5.1); SODIUM LEVEL 141 MMOL/L (136-145); TRIGLYCERIDES LEVEL 182 MG/DL (<150)
[2025-01-22 14:24] LABS: HEMOGLOBIN A1c 9.4 % (4.0-6.0)
== END ==
LOC: M LAB REF 12:43
PROVIDERS: ATTEND Nurse Practitioner Family
DX: E11.9 Type 2 diabetes mellitus without complications (principal); E78.5 Hyperlipidemia, unspecified; G89.4 Chronic pain syndrome

== ENCOUNTER 2025-04-29 10:03 | Day surgery (SDC) | payer OTHER ==
[~2025-04-29] VITALS: Ht 167.6 cm; Wt 94.3 kg
[~2025-04-29 10:03] MED LIST changes: +ATOR40TA75 PO; +ERGO500029 PO; +FAMO1TAB11 PO; +LORA-243 PO; +METF500T13 PO; +PROA1AER2 IN
[2025-04-29 12:41] VITALS: BP 119/71; O2SAT 95
== END 2025-04-29 12:55 | disposition home or self-care (01) ==
LOC: M OPP 10:03
PROVIDERS: ATTEND Surgery
DX: Z12.11 Encounter for screening for malignant neoplasm of colon (principal); K63.5 Polyp of colon; K31.89 Other diseases of stomach and duodenum; R10.13 Epigastric pain; Z86.73 Personal history of transient ischemic attack (TIA), and cerebral infarction without residual deficits; Z88.0 Allergy status to penicillin; Z79.84 Long term (current) use of oral hypoglycemic drugs; Z79.899 Other long term (current) drug therapy; J45.909 Unspecified asthma, uncomplicated; Z87.891 Personal history of nicotine dependence

== ENCOUNTER 2025-05-13 10:49 | Inpatient (IN) | payer OTHER ==
[~2025-05-13] VITALS: Ht 167.6 cm; Wt 97.5 kg
[2025-05-13] MEDS: ENOXAPARIN 40 MG/0.4 ML SYRINGE (J1650 PER 10MG) SC SCH (09:00)
[~2025-05-13 10:49] MED LIST changes: -ESTR1CRE VG; -FLON1SPR; -FLUC150T9 PO; -METF-838 PO; -VENTAER INH
[2025-05-13 11:25] LABS: VENOUS BASE EXCESS -4.0 (-2.0-2.0); VENOUS HCO3 21.3 MMOL/L (23.0-27.0); VENOUS O2 SATURATION 62.2 % (60.0-80.0); VENOUS PARTIAL PRESSURE CO2 40.2 mmHg (38.0-50.0); VENOUS PARTIAL PRESSURE O2 32.0 mmHg (30.0-50.0); VENOUS PH 7.343 UNITS (7.330-7.430); VENOUS STANDARD HCO3 20.3 MMOL/L; VENOUS TOTAL CO2 22.6 MMOL/L (24.0-28.0)
[2025-05-13] MEDS: ACETAMINOPHEN 325 MG TAB PO ONE (11:28)
[2025-05-13] MEDS: [UNRECOGNIZED DRUG - OTHER] IV ONE (11:30)
[2025-05-13] MEDS: NS 0.9% IV ONE (11:30)
[2025-05-13] MEDS: LevoFLOXacin IV 750 MG in IV 1 EA IV ONE (11:30)
[2025-05-13 11:48] LABS: BASO # 0.1 10^3/uL (0.0-0.2); BASO % 0.4 % (0.0-1.0); EOS # 0.1 10^3/uL (0.0-0.5); EOS % 0.5 % (0.0-3.0); LYMPH # 1.0 10^3/uL (1.5-5.0); LYMPH % 7.7 % (24.0-44.0); MONO # 1.0 10^3/uL (0.0-0.8); MONO % 7.2 % (2.0-8.0); NEUTROPHILS # 11.1 10^3/uL (1.5-8.5); NEUTROPHILS % 83.7 % (36.0-66.0); PLATELET COUNT, AUTOMATED 240 10^3/uL (150-450)
[2025-05-13 11:51] LABS: APPEARANCE, URINE HAZY (CLEAR); BACTERIA, URINE AUTO NEGATIVE (NEGATIVE); BILIRUBIN, URINE AUTO NEGATIVE (NEGATIVE); BLOOD, URINE BLOOD 2+ (NEGATIVE); GLUCOSE, URINE (UA) AUTO 3+ mg/dL (NEGATIVE); KETONE, URINE AUTO 2+ mg/dL (NEGATIVE); LEUKOCYTE ESTERASE, URINE AUTO NEGATIVE (NEGATIVE); MUCUS, URINE SMALL (NEGATIVE); NITRITE, URINE AUTO NEGATIVE (NEGATIVE); PROTEIN, URINE AUTO 3+ mg/dL (NEGATIVE); RBC, URINE AUTO 5 /HPF (0-3); SPECIFIC GRAVITY URINE AUTO 1.030 (1.002-1.035); SQUAMOUS EPITHELIAL CELL UR AU 2 /HPF (0-6); UROBILINOGEN, URINE AUTO 0.2 mg/dL (0.0-2.0); WBC, URINE AUTO 32 /HPF (0-3)
[2025-05-13 12:00] LABS: INR 1.08
[2025-05-13 12:02] LABS: ALT/SGPT 34.0 U/L (7.0-40); AST/SGOT 19.0 U/L (<34); CALCIUM LEVEL 9.2 MG/DL (8.5-10.1); CARBON DIOXIDE LEVEL 22.0 MMOL/L (20-31); CHLORIDE LEVEL 96.0 MMOL/L (98-107); CREATININE FOR GFR 0.9 MG/DL (0.55-1.30); GLOMERULAR FILTRATION RATE 76.4 (>51); POTASSIUM SERUM 4.3 MMOL/L (3.5-5.1); SODIUM LEVEL 134.0 MMOL/L (136-145)
[2025-05-13 13:10] LABS: C REACTIVE PROTEIN QUANTITATIV 34.47 MG/DL (<1.0)
[2025-05-13] MEDS ORDERED: FLUC150T9 PO (13:37)
[2025-05-13] MEDS ORDERED: METF-838 PO (13:37)
[2025-05-13] MEDS ORDERED: ESTR1CRE VG (13:37)
[2025-05-13] MEDS ORDERED: FLON1SPR (13:37)
[2025-05-13] MEDS ORDERED: VENTAER INH (13:37)
[2025-05-13] MEDS ORDERED: HOME MED LIST COMPLETE! XX SCH (13:40)
[2025-05-13] MEDS ORDERED: MOM 30 ML SUSPENSION UDC PO PRN (14:05)
[2025-05-13] MEDS ORDERED: MAALOX 30 ML SUSP *UDC PO PRN (14:05)
[2025-05-13] MEDS ORDERED: GLUCOSE 4 GM CHEW PO PRN (14:05)
[2025-05-13] MEDS ORDERED: DEXTROSE 50% 50 ML SYRINGE IV PRN (14:05)
[2025-05-13] MEDS ORDERED: GLUCAGON INJ 1 MG VIAL SC PRN (14:05)
[2025-05-13] MEDS ORDERED: LevoFLOXacin IV 750 MG in IV 1 EA IV SCH (15:00)
[2025-05-13] MEDS ORDERED: ALBUTEROL 90 MCG/ACT 8 GM HFA INHALER INH PRN (15:05)
[2025-05-13] MEDS ORDERED: FLUTICASONE PROPIONATE 0.05% NASAL SPRAY 16 GM PRN (15:05)
[2025-05-13 15:27] VITALS: BP 121/65; TEMP 99; O2SAT 95
[2025-05-13] MEDS: NS (Normal Saline) 0.9% 1,000 ML IV SCH (16:31)
[2025-05-13] MEDS: ACETAMINOPHEN 325 MG TAB PO PRN (19:04)
[2025-05-13] MEDS: INSULIN LISPRO (NovoLOG) PER UNIT SC SCH ×2 (19:05→20:54)
[2025-05-13 20:00] VITALS: BP 102/58; TEMP 98.6; O2SAT 94
[2025-05-13] MEDS: FAMOTIDINE 20 MG TAB PO SCH (20:02)
[2025-05-13] MEDS: ONDANSETRON 4MG 2ML VIAL IV PRN (20:02)
[2025-05-13] MEDS: DOCUSATE SODIUM 100 MG CAPSULE PO SCH (20:09)
[2025-05-13 23:00] VITALS: O2SAT 94
[2025-05-13 23:06] VITALS: BP 109/62; TEMP 98.4; O2SAT 95
[2025-05-14] VITALS (9 sets, daily range): BP systolic 94–119; BP diastolic 61–71; TEMP 98–98.9; O2SAT 93–99
[2025-05-14 06:10] LABS: BASO # 0.0 10^3/uL (0.0-0.2); BASO % 0.3 % (0.0-1.0); EOS # 0.0 10^3/uL (0.0-0.5); EOS % 0.0 % (0.0-3.0); LYMPH # 0.9 10^3/uL (1.5-5.0); LYMPH % 9.6 % (24.0-44.0); MONO # 0.9 10^3/uL (0.0-0.8); MONO % 9.7 % (2.0-8.0); NEUTROPHILS # 7.7 10^3/uL (1.5-8.5); NEUTROPHILS % 80.0 % (36.0-66.0); PLATELET COUNT, AUTOMATED 174 10^3/uL (150-450)
[2025-05-14 06:17] LABS: CALCIUM LEVEL 8.2 MG/DL (8.5-10.1); CARBON DIOXIDE LEVEL 19 MMOL/L (20-31); CHLORIDE LEVEL 105 MMOL/L (98-107); CREATININE FOR GFR 0.68 MG/DL (0.55-1.30); GLOMERULAR FILTRATION RATE > 90.0 (>51); MAGNESIUM LEVEL 1.9 MG/DL (1.8-2.4); POTASSIUM SERUM 4.5 MMOL/L (3.5-5.1); SODIUM LEVEL 140 MMOL/L (136-145)
[2025-05-14 06:30] LABS: C REACTIVE PROTEIN QUANTITATIV 31.30 MG/DL (<1.0)
[2025-05-14 07:54] LABS: ERYTHROCYTE SEDIMENTATION RATE 53 mm/hr (0-30)
[2025-05-14] MEDS ORDERED: VANCOMYCIN HCL 1,000 MG, VIAL MATE ADAPTER 1 EACH in NS 250 ML IV SCH (08:25)
[2025-05-14] MEDS: ATORVASTATIN 20 MG TAB PO SCH (09:02)
[2025-05-14] MEDS: LORATADINE 10 MG TAB PO SCH (09:02)
[2025-05-14] MEDS: LevoFLOXacin IV 750 MG in IV 1 EA IV SCH (11:22)
[2025-05-14] MEDS: VANCOMYCIN HCL 2,000 MG, VIAL MATE ADAPTER 1 EACH in NS 500 ML IV ONE (11:22)
[2025-05-14] MEDS: VANCOMYCIN HCL 1,250 MG, VIAL MATE ADAPTER 1 EACH in NS 250 ML IV SCH (20:58)
[2025-05-15 03:24] VITALS: BP 130/61; TEMP 98.2; O2SAT 92
[2025-05-15 07:28] LABS: BASO # 0.0 10^3/uL (0.0-0.2); BASO % 0.5 % (0.0-1.0); EOS # 0.0 10^3/uL (0.0-0.5); EOS % 0.5 % (0.0-3.0); LYMPH # 0.9 10^3/uL (1.5-5.0); LYMPH % 15.2 % (24.0-44.0); MONO # 0.5 10^3/uL (0.0-0.8); MONO % 9.5 % (2.0-8.0); NEUTROPHILS # 4.2 10^3/uL (1.5-8.5); NEUTROPHILS % 73.9 % (36.0-66.0); PLATELET COUNT, AUTOMATED 179 10^3/uL (150-450)
[2025-05-15 07:34] VITALS: BP 137/73; TEMP 98.5; O2SAT 94
[2025-05-15 07:57] LABS: C REACTIVE PROTEIN QUANTITATIV 22.89 MG/DL (<1.0); CALCIUM LEVEL 8.6 MG/DL (8.5-10.1); CARBON DIOXIDE LEVEL 23 MMOL/L (20-31); CHLORIDE LEVEL 104 MMOL/L (98-107); CREATININE FOR GFR 0.66 MG/DL (0.55-1.30); GLOMERULAR FILTRATION RATE > 90.0 (>51); MAGNESIUM LEVEL 1.8 MG/DL (1.8-2.4); POTASSIUM SERUM 4.1 MMOL/L (3.5-5.1); SODIUM LEVEL 139 MMOL/L (136-145)
[2025-05-15] MEDS: INSULIN GLARGINE-YFGN 1 UNITS/0.01 ML SC SCH (09:19)
[2025-05-15] MEDS: VANCOMYCIN HCL 1,000 MG, VIAL MATE ADAPTER 1 EACH in NS 250 ML IV SCH (09:19)
[2025-05-15 09:45] LABS: ESTIMATED AVERAGE GLUCOSE 260.0 MG/DL (60-110)
[2025-05-15 12:00] VITALS: BP 111/73; TEMP 98; O2SAT 98
[2025-05-15 16:00] VITALS: BP 120/79; TEMP 98.1; O2SAT 96
[2025-05-15] MEDS: FIORICET TAB PO ONE (17:49)
[2025-05-15 19:29] VITALS: BP 115/67; TEMP 97.9; O2SAT 98
[2025-05-15 23:06] VITALS: BP 127/72; TEMP 97.4; O2SAT 94
[2025-05-16 03:06] VITALS: BP 126/71; TEMP 97; O2SAT 94
[2025-05-16 05:46] LABS: BASO # 0.0 10^3/uL (0.0-0.2); BASO % 0.6 % (0.0-1.0); EOS # 0.0 10^3/uL (0.0-0.5); EOS % 0.8 % (0.0-3.0); LYMPH # 0.9 10^3/uL (1.5-5.0); LYMPH % 16.9 % (24.0-44.0); MONO # 0.5 10^3/uL (0.0-0.8); MONO % 9.8 % (2.0-8.0); NEUTROPHILS # 3.6 10^3/uL (1.5-8.5); NEUTROPHILS % 71.3 % (36.0-66.0); PLATELET COUNT, AUTOMATED 190 10^3/uL (150-450)
[2025-05-16 06:17] LABS: VANCOMYCIN LEVEL TROUGH 10.5 UG/ML (10.0-20.0)
[2025-05-16 06:19] LABS: CALCIUM LEVEL 8.0 MG/DL (8.5-10.1); CARBON DIOXIDE LEVEL 24 MMOL/L (20-31); CHLORIDE LEVEL 105 MMOL/L (98-107); CREATININE FOR GFR 0.64 MG/DL (0.55-1.30); GLOMERULAR FILTRATION RATE > 90.0 (>51); MAGNESIUM LEVEL 1.8 MG/DL (1.8-2.4); POTASSIUM SERUM 3.7 MMOL/L (3.5-5.1); SODIUM LEVEL 141 MMOL/L (136-145)
[2025-05-16 06:32] LABS: C REACTIVE PROTEIN QUANTITATIV 19.40 MG/DL (<1.0)
[2025-05-16] MEDS: VANCOMYCIN HCL 1,000 MG, VIAL MATE ADAPTER 1 EACH in NS 250 ML IV SCH (06:46)
[2025-05-16 07:52] VITALS: BP 121/65; TEMP 97.4; O2SAT 95
[2025-05-16] MEDS: INSULIN GLARGINE-YFGN 1 UNITS/0.01 ML SC SCH (08:43)
[2025-05-16] MEDS: FIORICET TAB PO PRN (08:45)
[2025-05-16 12:17] VITALS: BP 116/70; TEMP 97.7; O2SAT 95
[2025-05-16 13:19] LABS: CPK CREATINE PHOSPHOKINASE 64.0 U/L (34-145)
[2025-05-16] MEDS ORDERED: DAPTOmycin 800 MG in NS 50 ML IV SCH (15:00)
[2025-05-16 16:19] VITALS: BP 139/81; TEMP 97.8
[2025-05-16] MEDS: ACETAMINOPHEN 325 MG TAB PO PRN (16:26)
[2025-05-16 19:13] VITALS: BP 137/76; TEMP 97.1; O2SAT 95
[2025-05-16 23:06] VITALS: BP 137/82; TEMP 97.4; O2SAT 96
[2025-05-17 03:01] VITALS: BP 115/70; TEMP 97.9; O2SAT 94
[2025-05-17 06:00] LABS: BASO # 0.0 10^3/uL (0.0-0.2); BASO % 0.3 % (0.0-1.0); EOS # 0.1 10^3/uL (0.0-0.5); EOS % 1.7 % (0.0-3.0); LYMPH # 1.3 10^3/uL (1.5-5.0); LYMPH % 19.8 % (24.0-44.0); MONO # 0.5 10^3/uL (0.0-0.8); MONO % 8.4 % (2.0-8.0); NEUTROPHILS # 4.4 10^3/uL (1.5-8.5); NEUTROPHILS % 68.9 % (36.0-66.0); PLATELET COUNT, AUTOMATED 207 10^3/uL (150-450)
[2025-05-17 06:20] LABS: CALCIUM LEVEL 8.2 MG/DL (8.5-10.1); CARBON DIOXIDE LEVEL 28 MMOL/L (20-31); CHLORIDE LEVEL 104 MMOL/L (98-107); CREATININE FOR GFR 0.60 MG/DL (0.55-1.30); GLOMERULAR FILTRATION RATE > 90.0 (>51); MAGNESIUM LEVEL 1.8 MG/DL (1.8-2.4); POTASSIUM SERUM 3.4 MMOL/L (3.5-5.1); SODIUM LEVEL 142 MMOL/L (136-145)
[2025-05-17 06:39] LABS: C REACTIVE PROTEIN QUANTITATIV 16.91 MG/DL (<1.0)
[2025-05-17 07:44] VITALS: BP 127/71; TEMP 99.6; O2SAT 95
[2025-05-17] MEDS: POTASSIUM CHLORIDE 10MEQ SR TABLET PO ONE (09:13)
[2025-05-17] MEDS: INSULIN GLARGINE-YFGN 1 UNITS/0.01 ML SC SCH (09:14)
[2025-05-17 12:30] VITALS: BP 123/75; TEMP 99; O2SAT 94
[2025-05-17] MEDS: DAPTOmycin 600 MG in NS 50 ML IV SCH (15:39)
[2025-05-17 16:09] VITALS: BP 133/73; TEMP 98.8; O2SAT 95
[2025-05-17 19:05] VITALS: BP 145/79; TEMP 97.3; O2SAT 96
[2025-05-18 03:09] VITALS: BP 127/75; TEMP 97.4; O2SAT 94
[2025-05-18 05:58] LABS: BASO # 0.0 10^3/uL (0.0-0.2); BASO % 0.3 % (0.0-1.0); EOS # 0.1 10^3/uL (0.0-0.5); EOS % 2.0 % (0.0-3.0); LYMPH # 1.2 10^3/uL (1.5-5.0); LYMPH % 19.3 % (24.0-44.0); MONO # 0.5 10^3/uL (0.0-0.8); MONO % 7.2 % (2.0-8.0); NEUTROPHILS # 4.4 10^3/uL (1.5-8.5); NEUTROPHILS % 69.8 % (36.0-66.0); PLATELET COUNT, AUTOMATED 263 10^3/uL (150-450)
[2025-05-18 06:21] LABS: CALCIUM LEVEL 8.5 MG/DL (8.5-10.1); CARBON DIOXIDE LEVEL 28 MMOL/L (20-31); CHLORIDE LEVEL 104 MMOL/L (98-107); CREATININE FOR GFR 0.67 MG/DL (0.55-1.30); GLOMERULAR FILTRATION RATE > 90.0 (>51); MAGNESIUM LEVEL 1.8 MG/DL (1.8-2.4); POTASSIUM SERUM 3.4 MMOL/L (3.5-5.1); SODIUM LEVEL 143 MMOL/L (136-145)
[2025-05-18 06:39] LABS: C REACTIVE PROTEIN QUANTITATIV 15.33 MG/DL (<1.0)
[2025-05-18 07:43] VITALS: BP 128/83; TEMP 97.7; O2SAT 95
[2025-05-18] MEDS: POTASSIUM CHLORIDE 10MEQ SR TABLET PO ONE (09:39)
[2025-05-18] MEDS ORDERED: SODIUM CHLORIDE 0.9% INJ 10 ML SYR IV PRN (17:20)
[2025-05-18 18:20] VITALS: BP 152/84; TEMP 97.2; O2SAT 95
[2025-05-18] MEDS: SODIUM CHLORIDE 0.9% INJ 10 ML SYR IV SCH (18:39)
[2025-05-18 22:22] VITALS: BP 158/84; TEMP 98.1; O2SAT 97
[2025-05-19 06:00] VITALS: BP 146/84; TEMP 97.9; O2SAT 97
[2025-05-19 07:21] LABS: BASO # 0.0 10^3/uL (0.0-0.2); BASO % 0.6 % (0.0-1.0); EOS # 0.2 10^3/uL (0.0-0.5); EOS % 2.3 % (0.0-3.0); LYMPH # 1.2 10^3/uL (1.5-5.0); LYMPH % 19.0 % (24.0-44.0); MONO # 0.5 10^3/uL (0.0-0.8); MONO % 7.7 % (2.0-8.0); NEUTROPHILS # 4.4 10^3/uL (1.5-8.5); NEUTROPHILS % 67.6 % (36.0-66.0); PLATELET COUNT, AUTOMATED 307 10^3/uL (150-450)
[2025-05-19 07:49] LABS: CALCIUM LEVEL 8.9 MG/DL (8.5-10.1); CARBON DIOXIDE LEVEL 28 MMOL/L (20-31); CHLORIDE LEVEL 105 MMOL/L (98-107); CREATININE FOR GFR 0.67 MG/DL (0.55-1.30); GLOMERULAR FILTRATION RATE > 90.0 (>51); MAGNESIUM LEVEL 1.9 MG/DL (1.8-2.4); POTASSIUM SERUM 3.8 MMOL/L (3.5-5.1); SODIUM LEVEL 144 MMOL/L (136-145)
[2025-05-19 07:57] LABS: C REACTIVE PROTEIN QUANTITATIV 12.03 MG/DL (<1.0)
[2025-05-19] MEDS ORDERED: DAPT500V8 IV (11:46)
[2025-05-19 14:00] VITALS: BP 143/84; TEMP 98.1; O2SAT 94
[2025-05-19] MEDS: DAPTOmycin 600 MG in NS 50 ML IV SCH (14:29)
[2025-05-19] MEDS ORDERED: MICONAZOLE-7 VAGINAL 2% CREAM 47.7 GM PV SCH (15:44)
== END 2025-05-19 15:45 | disposition home or self-care (01) | DRG 720 ==
LOC: EDBD 10:49 → M ED 11:54 → M ED INP 14:02 → M PCU 15:23 → M MS5PR 05-18 22:10
PROVIDERS: ADMIT Internal Medicine; ATTEND Internal Medicine
PROC: 02HV33Z Insertion of Infusion Device into Superior Vena Cava, Percutaneous Approach (ICD-10-PCS; principal; 2025-05-18)
DX: A41.01 Sepsis due to Methicillin susceptible Staphylococcus aureus (principal); E87.20 Acidosis, unspecified; E11.65 Type 2 diabetes mellitus with hyperglycemia; E87.1 Hypo-osmolality and hyponatremia; N10 Acute pyelonephritis; N39.0 Urinary tract infection, site not specified; K21.9 Gastro-esophageal reflux disease without esophagitis; J45.909 Unspecified asthma, uncomplicated; N13.6 Pyonephrosis; E87.6 Hypokalemia; D64.9 Anemia, unspecified; F41.9 Anxiety disorder, unspecified; F32.A Depression, unspecified; Z79.899 Other long term (current) drug therapy; Z88.0 Allergy status to penicillin

== ENCOUNTER → 2025-05-13 | Outpatient (REF) | payer OTHER ==
[~2025-05-13] MED LIST changes: +ESTR1CRE VG; +FLON1SPR; +FLUC150T9 PO; +METF-838 PO; +VENTAER INH
== END ==
LOC: M LAB REF 11:33
PROVIDERS: ATTEND Physician Assistant
DX: R30.0 Dysuria (principal)

== ENCOUNTER → 2025-05-26 | Outpatient (REF) | payer OTHER ==
[~2025-05-26] MED LIST changes: +DAPT500V8 IV; +ESTR1CRE VG; +FLON1SPR; +FLUC150T9 PO; +METF-838 PO; +VENTAER INH
[2025-05-26 11:23] LABS: BASO # 0.0 10^3/uL (0.0-0.2); BASO % 0.5 % (0.0-1.0); EOS # 0.1 10^3/uL (0.0-0.5); EOS % 1.6 % (0.0-3.0); LYMPH # 1.9 10^3/uL (1.5-5.0); LYMPH % 22.6 % (24.0-44.0); MONO # 0.4 10^3/uL (0.0-0.8); MONO % 4.9 % (2.0-8.0); NEUTROPHILS # 6.0 10^3/uL (1.5-8.5); NEUTROPHILS % 69.9 % (36.0-66.0); PLATELET COUNT, AUTOMATED 457 10^3/uL (150-450)
[2025-05-26 11:42] LABS: ALT/SGPT 42 U/L (7.0-40); AST/SGOT 19 U/L (<34); C REACTIVE PROTEIN QUANTITATIV 4.51 MG/DL (<1.0); CALCIUM LEVEL 9.9 MG/DL (8.5-10.1); CARBON DIOXIDE LEVEL 26 MMOL/L (20-31); CHLORIDE LEVEL 99 MMOL/L (98-107); CREATININE FOR GFR 0.68 MG/DL (0.55-1.30); GLOMERULAR FILTRATION RATE > 90.0 (>51); POTASSIUM SERUM 4.6 MMOL/L (3.5-5.1); SODIUM LEVEL 137 MMOL/L (136-145)
[2025-05-27 09:27] LABS: CPK CREATINE PHOSPHOKINASE 102 U/L (34-145)
== END ==
LOC: M LAB REF 10:40
DX: E11.9 Type 2 diabetes mellitus without complications (principal); E78.5 Hyperlipidemia, unspecified; G89.4 Chronic pain syndrome

== ENCOUNTER → 2025-05-28 | Outpatient (REF) | payer OTHER ==
[2025-05-28 13:01] LABS: APPEARANCE, URINE HAZY (CLEAR); BACTERIA, URINE AUTO NEGATIVE (NEGATIVE); BILIRUBIN, URINE AUTO NEGATIVE (NEGATIVE); BLOOD, URINE BLOOD NEGATIVE (NEGATIVE); GLUCOSE, URINE (UA) AUTO 3+ mg/dL (NEGATIVE); KETONE, URINE AUTO NEGATIVE (NEGATIVE); LEUKOCYTE ESTERASE, URINE AUTO TRACE (NEGATIVE); MUCUS, URINE SMALL (NEGATIVE); NITRITE, URINE AUTO NEGATIVE (NEGATIVE); PROTEIN, URINE AUTO 1+ mg/dL (NEGATIVE); RBC, URINE AUTO 3 /HPF (0-3); SPECIFIC GRAVITY URINE AUTO 1.015 (1.002-1.035); SQUAMOUS EPITHELIAL CELL UR AU 2 /HPF (0-6); UROBILINOGEN, URINE AUTO 0.2 mg/dL (0.0-2.0); WBC, URINE AUTO 22 /HPF (0-3)
[2025-05-28 13:30] LABS: CREATININE, URINE 118.8 MG/DL; MALB URINE SIEMENS 99.0 MG/L; MAU/CREAT RATIO 83.3 MCG/MG (0.0-30.0)
[2025-05-28 17:16] LABS: BASO # 0.1 10^3/uL (0.0-0.2); BASO % 1.0 % (0.0-1.0); EOS # 0.1 10^3/uL (0.0-0.5); EOS % 1.2 % (0.0-3.0); LYMPH # 2.3 10^3/uL (1.5-5.0); LYMPH % 23.8 % (24.0-44.0); MONO # 0.5 10^3/uL (0.0-0.8); MONO % 5.3 % (2.0-8.0); NEUTROPHILS # 6.5 10^3/uL (1.5-8.5); NEUTROPHILS % 68.3 % (36.0-66.0); PLATELET COUNT, AUTOMATED 485 10^3/uL (150-450)
[2025-05-28 17:17] LABS: CALCIUM LEVEL 9.6 MG/DL (8.5-10.1); CARBON DIOXIDE LEVEL 27 MMOL/L (20-31); CHLORIDE LEVEL 99 MMOL/L (98-107); CREATININE FOR GFR 0.70 MG/DL (0.55-1.30); GLOMERULAR FILTRATION RATE > 90.0 (>51); POTASSIUM SERUM 4.7 MMOL/L (3.5-5.1); SODIUM LEVEL 137 MMOL/L (136-145)
== END ==
LOC: M LAB REF 12:18
PROVIDERS: ATTEND Physician Assistant
DX: E11.9 Type 2 diabetes mellitus without complications (principal)

== ENCOUNTER → 2025-06-01 | Outpatient (REF) | payer OTHER ==
[2025-06-01 11:26] LABS: BASO # 0.1 10^3/uL (0.0-0.2); BASO % 0.8 % (0.0-1.0); EOS # 0.2 10^3/uL (0.0-0.5); EOS % 3.1 % (0.0-3.0); LYMPH # 1.8 10^3/uL (1.5-5.0); LYMPH % 27.9 % (24.0-44.0); MONO # 0.4 10^3/uL (0.0-0.8); MONO % 5.5 % (2.0-8.0); NEUTROPHILS # 4.1 10^3/uL (1.5-8.5); NEUTROPHILS % 62.4 % (36.0-66.0); PLATELET COUNT, AUTOMATED 363 10^3/uL (150-450)
[2025-06-01 11:45] LABS: C REACTIVE PROTEIN QUANTITATIV 1.45 MG/DL (<1.0)
[2025-06-01 12:02] LABS: CPK CREATINE PHOSPHOKINASE 2176.0 U/L (34-145)
== END ==
LOC: M LAB REF 10:32
PROVIDERS: ATTEND Internal Medicine
DX: E11.9 Type 2 diabetes mellitus without complications (principal)

== ENCOUNTER → 2025-07-08 | Outpatient (CLI) | payer OTHER ==
[2025-07-08 13:22] LABS: BASO # 0.1 10^3/uL (0.0-0.2); BASO % 0.8 % (0.0-1.0); EOS # 0.2 10^3/uL (0.0-0.5); EOS % 2.8 % (0.0-3.0); LYMPH # 1.8 10^3/uL (1.5-5.0); LYMPH % 24.8 % (24.0-44.0); MONO # 0.4 10^3/uL (0.0-0.8); MONO % 5.7 % (2.0-8.0); NEUTROPHILS # 4.7 10^3/uL (1.5-8.5); NEUTROPHILS % 65.5 % (36.0-66.0); PLATELET COUNT, AUTOMATED 259 10^3/uL (150-450)
[2025-07-08 13:33] LABS: ESTIMATED AVERAGE GLUCOSE 212.0 MG/DL (60-110)
[2025-07-08 13:39] LABS: C REACTIVE PROTEIN QUANTITATIV 0.67 MG/DL (<1.0); CPK CREATINE PHOSPHOKINASE 68 U/L (34-145)
[2025-07-08 13:40] LABS: ALT/SGPT 19 U/L (7.0-40); AST/SGOT 12 U/L (<34); CALCIUM LEVEL 9.2 MG/DL (8.5-10.1); CARBON DIOXIDE LEVEL 27 MMOL/L (20-31); CHLORIDE LEVEL 104 MMOL/L (98-107); CREATININE FOR GFR 0.73 MG/DL (0.55-1.30); GLOMERULAR FILTRATION RATE > 90.0 (>51); POTASSIUM SERUM 4.5 MMOL/L (3.5-5.1); SODIUM LEVEL 143 MMOL/L (136-145)
== END ==
LOC: M WUC 09:15
PROVIDERS: ATTEND Internal Medicine Infectious Disease
DX: A49.01 Methicillin susceptible Staphylococcus aureus infection, unspecified site (principal); G72.9 Myopathy, unspecified; E11.9 Type 2 diabetes mellitus without complications

== ENCOUNTER → 2025-08-19 | Outpatient (REF) | payer OTHER ==
[2025-08-19 14:57] LABS: CALCIUM LEVEL 8.7 MG/DL (8.5-10.1); CARBON DIOXIDE LEVEL 26 MMOL/L (20-31); CHLORIDE LEVEL 106 MMOL/L (98-107); CREATININE FOR GFR 0.70 MG/DL (0.55-1.30); GLOMERULAR FILTRATION RATE > 90.0 (>51); POTASSIUM SERUM 4.3 MMOL/L (3.5-5.1); SODIUM LEVEL 142 MMOL/L (136-145)
== END ==
LOC: M LAB REF 14:18
PROVIDERS: ATTEND Physician Assistant
DX: E11.65 Type 2 diabetes mellitus with hyperglycemia (principal); E78.5 Hyperlipidemia, unspecified; I10 Essential (primary) hypertension